=== PATIENT | female | born 1960 | race African-American/Black ===

== ENCOUNTER 2019-05-19 10:01 | Inpatient (IN) | payer SELFPAY ==
[~2019-05-19] VITALS: Ht 162.6 cm; Wt 55.3 kg
[2019-05-19 04:00] VITALS: BP 105/63
[2019-05-19] MEDS ORDERED: SODIUM CHLORIDE 0.9% 1000ML BAG (SEPSIS BOLUS) IV ONE (13:15)
[2019-05-19 14:10] LABS: BASOPHILS % 0.4 % (0.0-2.0); EOSINOPHILS % 3.4 % (0.0-5.0); HEMATOCRIT. 36.6 % (36.0-48.0); HEMOGLOBIN. 12.4 g/dL (12.0-16.0); LYMPHOCYTES % 20.4 % (20.0-50.0); MEAN CORPUSCULAR HEMOGLOBIN 30.4 pg (28.0-32.0); MEAN CORPUSCULAR VOLUME 89.8 fL (81.0-99.0); MEAN PLATELET VOLUME 7.4 fl (7.4-10.4); MONOCYTES % 5.9 % (2.0-8.0); NEUTROPHILS % 69.9 % (40.0-76.0); PLATELET 276 x1000/uL (130-400); RED BLOOD CELL COUNT 4.08 mill/uL (4.2-5.4); RED CELL DISTRIBUTION WIDTH 12.9 % (11.6-14.6)
[2019-05-19 14:15] LABS: CHLORIDE 106 mEq/L (98-107)
[2019-05-19 14:19] LABS: PROTHROMBIN TIME 10.5 sec (9.6-11.0)
[2019-05-19 14:26] LABS: CLARITY URINE CLEAR (CLEAR); COLOR URINE YELLOW (YELLOW); KETONES URINE NEGATIVE (NEGATIVE); LEUKOCYTE ESTERASE URINE TRACE (NEGATIVE); NITRITE URINE NEGATIVE (NEGATIVE); OCCULT BLOOD URINE NEGATIVE (NEGATIVE); PH URINE 7.5 (4.5-8.0); PROTEIN URINE NEGATIVE (NEGATIVE); SPECIFIC GRAVITY URINE 1.011 (1.005-1.030); UROBILINOGEN URINE 0.2 E.U./dL (0.2-1.0)
[2019-05-19 16:59] VITALS: BP 154/92
[2019-05-19] MEDS ORDERED: ONDANSETRON HCL 4MG/2ML INJ IV PRN (17:00)
[2019-05-19] MEDS ORDERED: ACETAMINOPHEN 325MG TABLET PO PRN (17:00)
[2019-05-19] MEDS ORDERED: GUAIFENESIN 200MG/10ML SUGAR FREE UDC PO PRN (17:00)
[2019-05-19] MEDS ORDERED: HYDROCODONE/ACETAMINOPHEN 5/325MG TABLET PO PRN (17:00)
[2019-05-19] MEDS ORDERED: CLONIDINE 0.1MG TABLET PO PRN (17:00)
[2019-05-19] MEDS ORDERED: DOCUSATE SODIUM 100MG CAPSULE PO PRN (17:00)
[2019-05-19] MEDS ORDERED: MORPHINE SULFATE 2 MG/ML CPJ (NOT FOR IM USE) IV PRN (17:00)
[2019-05-19] MEDS ORDERED: LORAZEPAM 2MG/ML CPJ IV PRN (17:00)
[2019-05-19] MEDS: ENOXAPARIN 40MG/0.4ML SYR SUBCUT SCH (17:00)
[2019-05-19] MEDS ORDERED: LISI-604 PO (18:57)
[2019-05-19] MEDS ORDERED: SPIR25TA PO (18:57)
[2019-05-19] MEDS ORDERED: ATEN100T PO (18:57)
[2019-05-19 20:00] VITALS: BP 143/73
[2019-05-20] VITALS: BP 105/63
[2019-05-20 01:10] LABS: *AMPHETAMINES SCREEN URINE NEGATIVE (NEGATIVE); *BARBITURATES SCREEN URINE NEGATIVE (NEGATIVE); *BENZODIAZEPINES SCREEN URINE NEGATIVE (NEGATIVE)
[2019-05-20 01:11] LABS: *COCAINE SCREEN URINE NEGATIVE (NEGATIVE); CANNABINOID URINE SCREEN NEGATIVE (NEGATIVE); METHADONE URINE SCREEN NEGATIVE (NEGATIVE); OPIATES URINE SCREEN NEGATIVE (NEGATIVE); PHENCYCLIDINE URINE SCREEN NEGATIVE (NEGATIVE)
[2019-05-20 04:00] VITALS: BP 117/82
[2019-05-20 06:24] LABS: BASOPHILS % 0.4 % (0.0-2.0); EOSINOPHILS % 6.1 % (0.0-5.0); HEMATOCRIT. 33.7 % (36.0-48.0); HEMOGLOBIN. 11.4 g/dL (12.0-16.0); LYMPHOCYTES % 18.9 % (20.0-50.0); MEAN CORPUSCULAR HEMOGLOBIN 30.3 pg (28.0-32.0); MEAN CORPUSCULAR VOLUME 89.9 fL (81.0-99.0); MEAN PLATELET VOLUME 7.5 fl (7.4-10.4); MONOCYTES % 8.2 % (2.0-8.0); NEUTROPHILS % 66.4 % (40.0-76.0); PLATELET 267 x1000/uL (130-400); RED BLOOD CELL COUNT 3.75 mill/uL (4.2-5.4); RED CELL DISTRIBUTION WIDTH 12.8 % (11.6-14.6)
[2019-05-20 07:16] LABS: CHLORIDE 107 mEq/L (98-107)
[2019-05-20 07:30] LABS: LDL CHOLESTEROL 82 mg/dL (5-100)
[2019-05-20 07:36] LABS: T4 FREE 1.16 ng/dL (0.76-1.46)
[2019-05-20 07:37] LABS: HDL CHOLESTEROL 79 mg/dL (40-59)
[2019-05-20 08:00] VITALS: BP 142/85
[2019-05-20] MEDS: AMLODIPINE 10MG TABLET PO SCH (09:04)
[2019-05-20] MEDS: ENOXAPARIN 40MG/0.4ML SYR SUBCUT SCH (09:05)
[2019-05-20] MEDS ORDERED: VANCOMYCIN 1250MG in DEXTROSE 5% WATER 250ML IV SCH (11:30)
[2019-05-20 12:00] VITALS: BP 138/79
[2019-05-20 16:00] VITALS: BP 134/63
[2019-05-20 21:23] VITALS: BP 128/75
[2019-05-21] VITALS: BP_SYST 117; BP_SYST 124; BP_DIAS 69; BP_DIAS 82
[2019-05-21] MEDS ORDERED: VANCOMYCIN 1 G PREMIX 200 ML IV SCH (02:00)
[2019-05-21 08:00] VITALS: BP 125/71
[2019-05-21] MEDS: AMLODIPINE 10MG TABLET PO SCH (09:30)
[2019-05-21 13:33] VITALS: BP 125/71
== END 2019-05-21 15:00 | disposition home or self-care (01) | DRG 383 ==
LOC: ER 11:19 → 7WST 14:26 → EDBEDREQTM 14:29 → EDBEDREQ 14:29 → EDBEDREQSVC 14:29 → ENRESERV 14:59
PROVIDERS: ADMIT Hospitalist; ATTEND Hospitalist
DX: L03.115 Cellulitis of right lower limb (principal); M48.02 Spinal stenosis, cervical region; G89.29 Other chronic pain; I10 Essential (primary) hypertension; R26.9 Unspecified abnormalities of gait and mobility; L03.116 Cellulitis of left lower limb; M47.896 Other spondylosis, lumbar region; M47.892 Other spondylosis, cervical region; Z88.8 Allergy status to other drugs, medicaments and biological substances; Z79.899 Other long term (current) drug therapy
CPT/HCPCS: 36415; 71045; 72141; 72146; 72148; 80061; 80305; 83605; 84145; 84439; 84443; 84484; 93005; 93880; 93970; 97162; 97166; 99285; J3370; J7030; J7040; J7050; J7060

== ENCOUNTER 2019-06-01 12:57 | Emergency (ER) | payer SELFPAY ==
[~2019-06-01] VITALS: Ht 162.6 cm; Wt 55.0 kg
[~2019-06-01 12:57] MED LIST: ATEN100T PO; LISI-604 PO; SPIR25TA PO
[2019-06-01] MEDS ORDERED: CEPHALEXIN 250MG CAPSULE PO ONE (22:45)
[2019-06-01] MEDS ORDERED: HYDROCODONE/ACETAMINOPHEN 10/325MG TABLET PO ONE (22:45)
[2019-06-01 23:44] VITALS: BP 132/66
== END 2019-06-01 23:58 | disposition home or self-care (01) ==
LOC: ER 12:57
DX: S80.822D Blister (nonthermal), left lower leg, subsequent encounter (principal); S80.821D Blister (nonthermal), right lower leg, subsequent encounter; L03.116 Cellulitis of left lower limb; L03.115 Cellulitis of right lower limb; I10 Essential (primary) hypertension; M19.90 Unspecified osteoarthritis, unspecified site; Z87.19 Personal history of other diseases of the digestive system; Z87.09 Personal history of other diseases of the respiratory system; Z87.448 Personal history of other diseases of urinary system; Z88.6 Allergy status to analgesic agent; Z79.899 Other long term (current) drug therapy; X58.XXXD Exposure to other specified factors, subsequent encounter
CPT/HCPCS: 99283